=== PATIENT | male | born 2000 | race Caucasian/White ===

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

== ENCOUNTER 2022-06-03 20:13 | Outpatient (NON) | payer OTHER, SELFPAY | END 2022-06-03 20:14 | disposition home or self-care (01) | LOC: ANHLAB 20:14 | PROVIDERS: PCP Family Medicine; Visit Provider Physician Assistant | DX: J02.9 Acute pharyngitis, unspecified (principal) | CPT/HCPCS: 87070 ==

== ENCOUNTER 2023-07-07 16:03 | Outpatient (NON) | payer OTHER, SELFPAY | END 2023-07-07 16:04 | disposition home or self-care (01) | LOC: ANHGOSHLAB 16:04 | PROVIDERS: PCP Family Medicine; Visit Provider Nurse Practitioner Family | DX: R30.0 Dysuria (principal) | CPT/HCPCS: 87086 ==